=== PATIENT | male | born 1990 | race Caucasian/White ===

== ENCOUNTER 2017-09-07 10:26 | Emergency (ER) | payer SELFPAY ==
[~2017-09-07] VITALS: Wt 158.8 kg
--- NOTE | ~2017-09-07 | EKG ---
[place], [place] ELECTROCARDIOGRAM REPORT NAME: CLYDE WEBB UNIT #: [id number] ROOM: DOCTOR: SEBASTIAN FONG MD BIRTHDATE: [birth year] DOS: 09/07/2017 TIME: 1056 hours. FINDINGS: 1. Normal sinus rhythm at 85 beats per minute. 2. Incomplete right bundle branch block. 3. An abnormal ECG. 4. No previous tracing is available for comparison. SEBASTIAN FONG MD CM:EKGRPT:ELECTROCARDIOGRAM REPORT [id number] SEBASTIAN FONG MD
[~2017-09-07 10:26] MED LIST: ANAPROX DS550 MG PO; CIPRO500 MG PO; COMPAZINE10 MG PO; CYCLOBENZAPRINE10 MG PO; MOTRIN800 MG PO; Motrin,Rufen800 MG PO; NAPROSYN500 MG PO; NKHM; NORCO 5-325 TA1 EACH PO; ROBAXIN500 MG PO
[2017-09-07 10:47] LABS: BASO % 0.3 % (0.0-1.0); EOS # 0.1 10*3/uL (0.0-0.4); EOS % 1.3 % (1.0-4.0); HEMATOCRIT 48.4 % (42.0-52.0); HEMOGLOBIN 16.3 g/dl (14.0-18.0); LYMPH % 21.2 % (27.0-41.0); MEAN CELL VOLUME 91.1 fl (80.0-94.0); MEAN CORPUSCULAR HGB 30.7 pg (27.0-31.0); MEAN CORPUSCULAR HGB CONC 33.7 g/dl (33.0-37.0); MEAN PLATELET VOLUME 10.3 fl (9.6-12.3); MONO # 0.6 10*3/uL (0.1-1.0); NEUT # 6.6 10*3/uL (2.3-7.9); NEUT % 70.9 % (47.0-73.0); PLATELET COUNT AUTOMATED 292 10*3/uL (130-400); RED BLOOD COUNT 5.31 10*6/uL (4.50-5.90); RED CELL DISTRI WIDTH 14.1 % (0-14.5); WHITE BLOOD COUNT 9.3 10*3/uL (4.8-10.8)
[2017-09-07 11:28] LABS: ALBUMIN 3.7 gm/dl (3.1-4.5); BUN 15 mg/dl (7-24); CHLORIDE 107 mmol/L (98-107); CREATININE 1.01 mg/dL (0.70-1.30); POTASSIUM 4.6 mmol/L (3.5-5.1); SODIUM 143 mmol/L (136-145)
[2017-09-07 11:37] LABS: SGOT/AST 14 IU/L (3-35); SGPT/ALT 42 U/L (12-78); TOTAL PROTEIN 7.3 gm/dL (6.4-8.2); TROPONIN I < 0.015 ng/ml (<0.045)
[2017-09-07 11:58] LABS: ALKALINE PHOSPHATASE 49 U/L (45-117)
== END 2017-09-07 12:27 | disposition home or self-care (01) ==
LOC: ED 10:26
PROVIDERS: Nurse Practitioner Family
DX: E86.0 Dehydration (principal); R03.0 Elevated blood-pressure reading, without diagnosis of hypertension

== ENCOUNTER 2018-09-22 19:13 | Emergency (ER) | payer SELFPAY ==
[~2018-09-22] VITALS: Ht 182.8 cm; Wt 158.8 kg
[2018-09-22] MEDS ORDERED: PREDNISONE20 M1 PO ×2 (19:46→19:47)
[2018-09-22] MEDS ORDERED: ROBAXIN500 M1 PO (19:46)
== END 2018-09-22 20:06 | disposition home or self-care (01) ==
LOC: ED 19:13
DX: M54.41 Lumbago with sciatica, right side (principal); R06.02 Shortness of breath